=== PATIENT | male | born 1980 | race Caucasian/White ===

== ENCOUNTER → 2022-06-02 | Emergency (ER) | payer MEDICAID ==
[~2022-06-02] VITALS: Ht 177.8 cm; Wt 97.1 kg
[2022-06-02 11:53] VITALS: BP 135/76
--- NOTE | 2022-06-02 11:54 | NUR ---
DR CARROLL AT BEDSIDE
[2022-06-02 12:28] LABS: BASOPHILS % (AUTO) 0.4 % (0.0-2.0); HEMATOCRIT 49 % (39-51); HEMOGLOBIN 16.1 g/dL (13.5-17.5); MEAN CORPUSCULAR HGB CONC 33 g/dl (31.0-36.0); MEAN CORPUSCULAR VOLUME 84 fL (80-96); MONOCYTES # (AUTO) 0.4 K/uL (0.1-1.30); MONOCYTES % (AUTO) 5.8 % (2.0-12.0); NEUTROPHILS # (AUTO) 5.3 K/uL (1.8-8.9); NEUTROPHILS % (AUTO) 77.8 % (43.0-81.0); PLATELET COUNT (AUTO) 262 K/uL (150-450); RED BLOOD CELL COUNT(AUTO) 5.81 MIL/uL (4.5-6.0); WHITE BLOOD COUNT (AUTO) 6.8 K/uL (4.3-11.0)
[2022-06-02 12:36] LABS: CREATININE 1.1 mg/dL (0.6-1.3); POTASSIUM 4.6 mmol/L (3.5-5.1)
--- NOTE | 2022-06-02 13:01 | NUR ---
Patient discharged to home in stable condition. Written and verbal after care instructions given. Patient verbalizes understanding of instruction.
== END | disposition home or self-care (01) ==
LOC: ER 11:40
DX: F41.9 Anxiety disorder, unspecified (principal); Z60.2 Problems related to living alone
CPT/HCPCS: 36415; 80048-TC; 85025-TC

== ENCOUNTER 2022-07-06 01:20 | Emergency (ER) | payer MEDICAID ==
[~2022-07-06] VITALS: Ht 177.8 cm; Wt 97.5 kg
[2022-07-06] MEDS ORDERED: ONDANSETRON 4 MG TAB.RAPDIS SL ONE (01:30)
[2022-07-06 01:31] VITALS: BP 123/61
--- NOTE | 2022-07-06 01:31 | NUR ---
ABBY C/O ANXIETY ATTACK. 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 +N.V
[2022-07-06] MEDS ORDERED: ONDANSETRON 4 MG TAB.RAPDIS ONE (01:43)
--- NOTE | 2022-07-06 01:51 | NUR ---
Patient discharged to home in stable condition. Pt states he feels better. Written and verbal after care instructions given. Patient verbalizes understanding of instruction. PT ambulatory with a steady gait
== END 2022-07-06 01:53 | disposition home or self-care (01) ==
LOC: ER 01:24
DX: F41.9 Anxiety disorder, unspecified (principal); Z60.2 Problems related to living alone
CPT/HCPCS: 99282; Q0162

== ENCOUNTER 2023-02-09 10:22 | Emergency (ER) | payer MEDICAID ==
[~2023-02-09] VITALS: Ht 177.8 cm; Wt 99.8 kg
--- NOTE | 2023-02-09 10:35 | NUR ---
EPISODE OF PALPITATION LAST NIGHT THAT WOKE HIM UP,FEELING ANXIOUS THIS MORNING
--- NOTE | 2023-02-09 10:41 | NUR ---
EKG PERFORMED BY EMT AT BEDSIDE
[2023-02-09] MEDS ORDERED: LORAZEPAM 1 MG TABLET PO ONE (11:00)
[2023-02-09] MEDS ORDERED: LORAZEPAM 1 MG TABLET ONE (11:04)
--- NOTE | 2023-02-09 11:55 | NUR ---
IV removed. Catheter intact and site benign. Pressure and 4x4 applied to site. No bleeding noted.
--- NOTE | 2023-02-09 11:57 | NUR ---
Patient discharged to home in stable condition. Written and verbal after care instructions given. Patient verbalizes understanding of instruction.
[2023-02-09 12:00] VITALS: BP 118/81
== END 2023-02-09 12:00 | disposition home or self-care (01) ==
LOC: ER 10:28
DX: F41.9 Anxiety disorder, unspecified (principal); Z60.2 Problems related to living alone
CPT/HCPCS: 99283; 93005; A4217